=== PATIENT | male | born 1955 | race Native Hawaiian/Other Pacific Islander ===

== ENCOUNTER 2017-09-15 19:08 | Emergency (ER) | payer OTHER ==
[~2017-09-15] VITALS: Ht 180.3 cm; Wt 83.9 kg
[~2017-09-15 19:08] MED LIST: ASPIRIN/ENTERIC81 MG PO; CARV12.5 PO; DIGOXIN0.125 MG PO; LISI10TA11 PO; PACERONE200 MG PO; PRAVACHOL20 MG PO
[2017-09-15 20:32] VITALS: BP 133/86; TEMP 98.4
== END 2017-09-15 20:41 | disposition home or self-care (01) ==
LOC: ED 19:08
DX: S61.431A Puncture wound without foreign body of right hand, initial encounter (principal); W27.0XXA Contact with workbench tool, initial encounter; Y92.098 Other place in other non-institutional residence as the place of occurrence of the external cause
CPT/HCPCS: 90471; 90715; 99283

== ENCOUNTER 2017-11-19 11:15 | Observation (INO) | payer OTHER ==
[~2017-11-19] VITALS: Ht 180.3 cm; Wt 81.4 kg
[2017-11-19 11:33] VITALS: BP 142/75; TEMP 96.5
[2017-11-19 11:51] LABS: PLATELET COUNT 146 K/uL (142-355)
[2017-11-19 11:57] LABS: POTASSIUM 4.1 mmol/L (3.6-5.2); SODIUM 138 mmol/L (136-145)
[2017-11-19 12:01] VITALS: BP 136/93
[2017-11-19 12:12] LABS: PARTIAL THROMBOPLASTIN TIME 24.9 SECONDS (24.5-33.6)
[2017-11-19 12:53] VITALS: BP 134/87
[2017-11-19 14:15] VITALS: BP 115/91; TEMP 97.9; Ht 180.3 cm; Wt 81.4 kg
[2017-11-19] MEDS ORDERED: ZESTRIL40 MG PO (14:25)
[2017-11-19] MEDS ORDERED: CARV12.5 PO ×2 (14:26→14:27)
[2017-11-19 15:55] VITALS: BP 110/81; TEMP 97.6
[2017-11-19 20:00] VITALS: BP 128/70; TEMP 97.6
[2017-11-20] VITALS: BP 125/78; TEMP 97
[2017-11-20 04:00] VITALS: BP 126/80; TEMP 97.6
[2017-11-20 08:00] VITALS: BP 113/72; TEMP 98.2
[2017-11-20 08:20] LABS: PLATELET COUNT 134 K/uL (142-355)
[2017-11-20 09:00] LABS: POTASSIUM 3.5 mmol/L (3.6-5.2); SODIUM 139 mmol/L (136-145)
== END 2017-11-20 12:15 | disposition home or self-care (01) ==
LOC: ED 11:15 → MED/SURG 13:01
DX: E87.79 Other fluid overload (principal); I10 Essential (primary) hypertension; E78.4 Other hyperlipidemia; R07.89 Other chest pain; R06.02 Shortness of breath
CPT/HCPCS: 36415; 80053; 82550; 83880; 84484; 85027; 85610; 85730; 93005; 96372; 96374; 99220; 99283; G0378; J1650; J1940

== ENCOUNTER 2018-01-03 09:17 | Outpatient (CLI) | payer OTHER ==
[~2018-01-03 09:17] MED LIST changes: +ZESTRIL40 MG PO
== END 2018-01-03 21:05 | disposition home or self-care (01) ==
LOC: LABW 09:17
DX: Z79.01 Long term (current) use of anticoagulants (principal); Z79.899 Other long term (current) drug therapy; Z51.81 Encounter for therapeutic drug level monitoring; I48.0 Paroxysmal atrial fibrillation
CPT/HCPCS: 36415; 85610

== ENCOUNTER 2018-01-06 08:32 | Outpatient (CLI) | payer OTHER | END 2018-01-06 19:17 | disposition home or self-care (01) | LOC: LABW 08:32 | DX: Z79.01 Long term (current) use of anticoagulants (principal); Z79.899 Other long term (current) drug therapy; Z51.81 Encounter for therapeutic drug level monitoring; I48.0 Paroxysmal atrial fibrillation | CPT/HCPCS: 36415; 85610 ==

== ENCOUNTER 2018-01-13 09:37 | Outpatient (CLI) | payer OTHER | END 2018-01-13 19:36 | disposition home or self-care (01) | LOC: LABW 09:37 | DX: Z79.01 Long term (current) use of anticoagulants (principal); Z79.899 Other long term (current) drug therapy; I48.0 Paroxysmal atrial fibrillation; Z51.81 Encounter for therapeutic drug level monitoring | CPT/HCPCS: 36415; 85610 ==

== ENCOUNTER 2018-01-20 09:14 | Outpatient (CLI) | payer OTHER | END 2018-01-20 20:06 | disposition home or self-care (01) | LOC: LABW 09:14 | DX: Z79.01 Long term (current) use of anticoagulants (principal); Z79.899 Other long term (current) drug therapy; Z51.81 Encounter for therapeutic drug level monitoring; I48.0 Paroxysmal atrial fibrillation | CPT/HCPCS: 36415; 85610 ==

== ENCOUNTER 2018-01-27 10:26 | Outpatient (CLI) | payer OTHER | END 2018-01-27 19:19 | disposition home or self-care (01) | LOC: LABW 10:26 | DX: Z79.01 Long term (current) use of anticoagulants (principal); Z79.899 Other long term (current) drug therapy; Z51.81 Encounter for therapeutic drug level monitoring; I48.0 Paroxysmal atrial fibrillation | CPT/HCPCS: 36415; 85610 ==

== ENCOUNTER 2018-02-05 10:24 | Outpatient (CLI) | payer OTHER | END 2018-02-06 10:24 | disposition home or self-care (01) | LOC: LABW 10:24 | DX: Z79.01 Long term (current) use of anticoagulants (principal); Z51.81 Encounter for therapeutic drug level monitoring; Z79.899 Other long term (current) drug therapy; I48.0 Paroxysmal atrial fibrillation | CPT/HCPCS: 36415; 85610 ==

== ENCOUNTER 2018-02-27 09:16 | Outpatient (CLI) | payer OTHER | END 2018-02-27 22:45 | disposition home or self-care (01) | LOC: LABW 09:16 | DX: Z79.01 Long term (current) use of anticoagulants (principal); Z79.899 Other long term (current) drug therapy; Z51.81 Encounter for therapeutic drug level monitoring; I48.0 Paroxysmal atrial fibrillation | CPT/HCPCS: 36415; 85610 ==

== ENCOUNTER 2018-03-06 08:23 | Outpatient (CLI) | payer OTHER | END 2018-03-06 19:26 | disposition home or self-care (01) | LOC: LABW 08:23 | DX: Z79.01 Long term (current) use of anticoagulants (principal); Z79.899 Other long term (current) drug therapy; I48.0 Paroxysmal atrial fibrillation; Z51.81 Encounter for therapeutic drug level monitoring | CPT/HCPCS: 36415; 85610 ==

== ENCOUNTER 2018-03-13 08:58 | Outpatient (CLI) | payer OTHER | END 2018-03-13 22:04 | disposition home or self-care (01) | LOC: LABW 08:58 | DX: Z79.01 Long term (current) use of anticoagulants (principal); Z79.899 Other long term (current) drug therapy; I48.0 Paroxysmal atrial fibrillation; Z51.81 Encounter for therapeutic drug level monitoring | CPT/HCPCS: 36415; 85610 ==

== ENCOUNTER 2018-03-20 08:46 | Outpatient (CLI) | payer OTHER | END 2018-03-20 19:26 | disposition home or self-care (01) | LOC: LABW 08:46 | DX: Z79.01 Long term (current) use of anticoagulants (principal); Z79.899 Other long term (current) drug therapy; Z51.81 Encounter for therapeutic drug level monitoring; I48.0 Paroxysmal atrial fibrillation | CPT/HCPCS: 36415; 85610 ==

== ENCOUNTER 2018-03-27 12:48 | Outpatient (CLI) | payer OTHER | END 2018-03-27 22:29 | disposition home or self-care (01) | LOC: LABW 12:48 | DX: Z79.01 Long term (current) use of anticoagulants (principal); Z79.899 Other long term (current) drug therapy; Z51.81 Encounter for therapeutic drug level monitoring; I48.0 Paroxysmal atrial fibrillation | CPT/HCPCS: 36415; 85610 ==

== ENCOUNTER 2018-04-03 08:16 | Outpatient (CLI) | payer OTHER | END 2018-04-03 22:03 | disposition home or self-care (01) | LOC: LABW 08:16 | DX: Z79.01 Long term (current) use of anticoagulants (principal); Z79.899 Other long term (current) drug therapy; I48.0 Paroxysmal atrial fibrillation; Z51.81 Encounter for therapeutic drug level monitoring | CPT/HCPCS: 36415; 85610 ==

== ENCOUNTER 2018-04-10 08:12 | Outpatient (CLI) | payer OTHER | END 2018-04-10 23:28 | disposition home or self-care (01) | LOC: LABW 08:12 | DX: Z79.01 Long term (current) use of anticoagulants (principal); Z79.899 Other long term (current) drug therapy; Z51.81 Encounter for therapeutic drug level monitoring; I48.0 Paroxysmal atrial fibrillation | CPT/HCPCS: 36415; 85610 ==

== ENCOUNTER 2018-04-17 08:02 | Outpatient (CLI) | payer OTHER | END 2018-04-17 19:09 | disposition home or self-care (01) | LOC: LABW 08:02 | DX: Z79.01 Long term (current) use of anticoagulants (principal); Z79.899 Other long term (current) drug therapy; Z51.81 Encounter for therapeutic drug level monitoring; I48.0 Paroxysmal atrial fibrillation | CPT/HCPCS: 36415; 85610 ==

== ENCOUNTER 2018-05-01 09:04 | Outpatient (CLI) | payer OTHER | END 2018-05-01 18:00 | disposition home or self-care (01) | LOC: LABW 09:04 | DX: Z79.01 Long term (current) use of anticoagulants (principal); Z79.899 Other long term (current) drug therapy; Z51.81 Encounter for therapeutic drug level monitoring; I48.0 Paroxysmal atrial fibrillation | CPT/HCPCS: 36415; 85610 ==

== ENCOUNTER 2018-05-15 09:14 | Outpatient (CLI) | payer OTHER | END 2018-05-15 20:39 | disposition home or self-care (01) | LOC: LABW 09:14 | DX: I48.0 Paroxysmal atrial fibrillation (principal); Z79.01 Long term (current) use of anticoagulants; Z79.899 Other long term (current) drug therapy | CPT/HCPCS: 36415; 85610 ==

== ENCOUNTER 2018-05-22 08:25 | Outpatient (CLI) | payer OTHER | END 2018-05-22 19:07 | disposition home or self-care (01) | LOC: LABW 08:25 | DX: I48.0 Paroxysmal atrial fibrillation (principal); Z79.01 Long term (current) use of anticoagulants; Z79.899 Other long term (current) drug therapy | CPT/HCPCS: 36415; 85610 ==

== ENCOUNTER 2018-05-29 10:16 | Outpatient (CLI) | payer OTHER | END 2018-05-29 19:36 | disposition home or self-care (01) | LOC: LABW 10:16 | DX: Z79.01 Long term (current) use of anticoagulants (principal); Z79.899 Other long term (current) drug therapy; Z51.81 Encounter for therapeutic drug level monitoring; I48.0 Paroxysmal atrial fibrillation | CPT/HCPCS: 36415; 85610 ==

== ENCOUNTER 2018-06-05 09:20 | Outpatient (CLI) | payer OTHER | END 2018-06-05 21:18 | disposition home or self-care (01) | LOC: LABW 09:20 | DX: Z79.01 Long term (current) use of anticoagulants (principal); Z79.899 Other long term (current) drug therapy; Z51.81 Encounter for therapeutic drug level monitoring; I48.0 Paroxysmal atrial fibrillation | CPT/HCPCS: 36415; 85610 ==

== ENCOUNTER 2018-07-22 08:51 | Emergency (ER) | payer OTHER ==
[~2018-07-22] VITALS: Ht 180.3 cm; Wt 77.1 kg
[2018-07-22 09:00] VITALS: TEMP 99.1
[2018-07-22] MEDS ORDERED: WARF2.5T8 PO (09:19)
[2018-07-22] MEDS ORDERED: WARF5TAB6 PO (09:19)
[2018-07-22 10:00] VITALS: BP 128/78
== END 2018-07-22 10:15 | disposition home or self-care (01) ==
LOC: ED 08:51
PROC: 0R9L3ZZ Drainage of Right Elbow Joint, Percutaneous Approach (ICD-10-PCS; principal; 2018-07-22)
DX: S50.01XA Contusion of right elbow, initial encounter (principal)
CPT/HCPCS: 99283

== ENCOUNTER 2019-01-09 20:23 | Emergency (ER) | payer OTHER ==
[~2019-01-09] VITALS: Ht 180.3 cm; Wt 88.5 kg
[~2019-01-09 20:23] MED LIST changes: +WARF2.5T8 PO; +WARF5TAB6 PO
[2019-01-09 20:48] VITALS: TEMP 97.7
[2019-01-09 21:25] LABS: PLATELET COUNT 184 K/uL (142-355)
[2019-01-09 21:26] LABS: POTASSIUM 3.8 mmol/L (3.6-5.2); SODIUM 144 mmol/L (136-145)
[2019-01-09 23:31] VITALS: BP 134/84
== END 2019-01-09 23:32 | disposition home or self-care (01) ==
LOC: ED 20:23
PROVIDERS: Emergency Medicine
DX: I50.9 Heart failure, unspecified (principal)
CPT/HCPCS: 80053; 81000; 82550; 83735; 83880; 84484; 85027; 93005; 96365; 99284; J1940

== ENCOUNTER 2020-01-15 15:23 | Outpatient (CLI) | payer OTHER | END 2020-01-15 19:47 | disposition home or self-care (01) | LOC: US 15:23 | DX: R10.32 Left lower quadrant pain (principal); I10 Essential (primary) hypertension; I25.2 Old myocardial infarction; N50.812 Left testicular pain ==

== ENCOUNTER 2020-01-25 09:47 | Outpatient (CLI) | payer OTHER | END 2020-01-25 19:12 | disposition home or self-care (01) | LOC: US 09:47 | DX: R10.32 Left lower quadrant pain (principal); I11.0 Hypertensive heart disease with heart failure; I25.2 Old myocardial infarction; N50.812 Left testicular pain ==

== ENCOUNTER 2021-03-06 09:06 | Outpatient (CLI) | payer OTHER | END 2021-03-06 19:11 | disposition home or self-care (01) | LOC: US 09:06 | PROVIDERS: ATTEND Nurse Practitioner Family | DX: I12.9 Hypertensive chronic kidney disease with stage 1 through stage 4 chronic kidney disease, or unspecified chronic kidney disease (principal); E78.49 Other hyperlipidemia; G47.00 Insomnia, unspecified; N18.30 Chronic kidney disease, stage 3 unspecified; E34.8 Other specified endocrine disorders ==

== ENCOUNTER 2021-06-28 08:42 | Outpatient (CLI) | payer OTHER | END 2021-06-28 13:54 | disposition home or self-care (01) | LOC: CT 08:42 | PROVIDERS: ATTEND Nurse Practitioner Family | DX: E34.8 Other specified endocrine disorders (principal); N18.30 Chronic kidney disease, stage 3 unspecified; I50.20 Unspecified systolic (congestive) heart failure; K56.41 Fecal impaction | CPT/HCPCS: 36415; 82565; 84520 ==

== ENCOUNTER 2021-09-28 10:53 | Emergency (ER) | payer OTHER ==
[~2021-09-28] VITALS: Ht 180.3 cm; Wt 82.2 kg
[2021-09-28 11:00] VITALS: TEMP 98.7
[2021-09-28] MEDS ORDERED: FURO40TA93 PO (11:15)
[2021-09-28] MEDS ORDERED: AMBIEN5 MG PO (11:17)
[2021-09-28] MEDS ORDERED: CARV25TA PO (11:18)
[2021-09-28] MEDS ORDERED: AMLO2.5T PO (11:18)
[2021-09-28 11:40] LABS: PLATELET COUNT 160 K/uL (142-355)
[2021-09-28 11:48] LABS: POTASSIUM 4.5 mmol/L (3.6-5.2)
[2021-09-28 13:13] VITALS: BP 125/65
== END 2021-09-28 13:15 | disposition home or self-care (01) ==
LOC: ED 10:53
PROVIDERS: Emergency Medicine
DX: Q31.3 Laryngocele (principal)
CPT/HCPCS: 80048; 85027; 99283

== ENCOUNTER 2022-03-25 19:15 | Emergency (ER) | payer OTHER ==
[~2022-03-25] VITALS: Ht 180.3 cm; Wt 83.5 kg
[~2022-03-25 19:15] MED LIST changes: +AMBIEN5 MG PO; +AMLO2.5T PO; +CARV25TA PO; +FURO40TA93 PO
[2022-03-25 19:20] VITALS: TEMP 98.7
[2022-03-25 20:00] LABS: PLATELET COUNT 155 K/uL (142-355)
[2022-03-25 20:06] LABS: POTASSIUM 4.6 mmol/L (3.6-5.2)
[2022-03-25 20:44] LABS: PARTIAL THROMBOPLASTIN TIME 30.8 SECONDS (24.5-33.6)
[2022-03-25 21:06] VITALS: BP 126/73
== END 2022-03-25 21:06 | disposition home or self-care (01) ==
LOC: ED 19:15
PROVIDERS: Hospitalist
DX: R00.2 Palpitations (principal); N18.9 Chronic kidney disease, unspecified; I50.9 Heart failure, unspecified
CPT/HCPCS: 36415; 80053; 80162; 82550; 83880; 84484; 85027; 85610; 85730; 93005; 99283

== ENCOUNTER 2022-12-28 09:32 | Outpatient (CLI) | payer OTHER | END 2022-12-28 19:53 | disposition home or self-care (01) | LOC: CT 09:32 | PROVIDERS: ATTEND Internal Medicine | DX: R10.9 Unspecified abdominal pain (principal) | CPT/HCPCS: 36415; 82565; 84520; Q9963 ==

== ENCOUNTER 2023-04-15 21:34 | Emergency (ER) | payer OTHER ==
[~2023-04-15] VITALS: Ht 180.3 cm; Wt 61.2 kg
[2023-04-15 21:35] VITALS: BP 116/67; TEMP 97.8
[2023-04-15 22:31] LABS: PLATELET COUNT 157 K/uL (142-355)
== END 2023-04-15 23:10 | disposition home or self-care (01) ==
LOC: ED 21:34
PROVIDERS: Emergency Medicine Emergency Medical Services
DX: S50.811A Abrasion of right forearm, initial encounter (principal); X58.XXXA Exposure to other specified factors, initial encounter; I10 Essential (primary) hypertension; I48.91 Unspecified atrial fibrillation
CPT/HCPCS: 36415; 85027; 85610; 99283

== ENCOUNTER 2023-04-17 15:37 | Emergency (ER) | payer OTHER ==
[~2023-04-17] VITALS: Ht 180.3 cm; Wt 63.5 kg
[2023-04-17 15:40] VITALS: BP 114/56; TEMP 97.6
== END 2023-04-17 16:05 | disposition home or self-care (01) ==
LOC: ED 15:37
DX: S51.811A Laceration without foreign body of right forearm, initial encounter (principal); D68.9 Coagulation defect, unspecified
CPT/HCPCS: 90471; 90715; 99282